=== PATIENT | female | born 1955 | race Caucasian/White ===

== ENCOUNTER → 2018-03-04 | Outpatient (CLI) | payer BC ==
--- NOTE | 2018-03-05 07:56 | MM ---
Reason for exam: screening (asymptomatic). Last mammogram was performed 2 years ago. History: Patient is postmenopausal. Physical Findings: A clinical breast exam by your physician is recommended on an annual basis and results should be correlated with mammographic findings. MG 3D Screening Mammo W/Cad Bilateral CC and MLO view(s) were taken. Prior study comparison: March 17, 2016, bilateral MG screening mammo w CAD. March 16, 2015, bilateral MG screening mammo w CAD. There are scattered fibroglandular densities. There is no discrete abnormality. ASSESSMENT: Negative, BI-RAD 1 RECOMMENDATION: Routine screening mammogram of both breasts in 1 year.
== END | disposition home or self-care (01) ==
LOC: RADMAMWWP 08:57
PROVIDERS: ATTEND Family Medicine
DX: Z12.31 Encounter for screening mammogram for malignant neoplasm of breast (principal)
CPT/HCPCS: 77063; 77067

== ENCOUNTER → 2019-05-26 | Outpatient (CLI) | payer BC ==
--- NOTE | 2019-05-30 09:26 | MM ---
Reason for exam: screening (asymptomatic). Last mammogram was performed 1 year and 3 months ago. History: Patient is postmenopausal and history of other cancer. Physical Findings: A clinical breast exam by your physician is recommended on an annual basis and results should be correlated with mammographic findings. MG Screening Mammo w CAD Bilateral CC and MLO view(s) were taken. Prior study comparison: March 04, 2018, bilateral MG 3d screening mammo w/cad. March 17, 2016, bilateral MG screening mammo w CAD. There are scattered fibroglandular densities. No significant changes when compared with prior studies. ASSESSMENT: Negative, BI-RAD 1 RECOMMENDATION: Routine screening mammogram of both breasts in 1 year.
== END | disposition home or self-care (01) ==
LOC: RADMAMWWP 11:53
PROVIDERS: ATTEND Family Medicine
DX: Z12.31 Encounter for screening mammogram for malignant neoplasm of breast (principal)
CPT/HCPCS: 77067

== ENCOUNTER → 2019-12-05 | Outpatient (CLI) | payer BC ==
--- NOTE | 2019-12-05 11:47 | US ---
EXAMINATION TYPE: US carotid duplex BILAT DATE OF EXAM: 12/05/2019 COMPARISON: NONE CLINICAL HISTORY: H53.31 Sudden vision loss R eye I10 HTN. EXAM MEASUREMENTS: RIGHT: Peak Systolic Velocity (PSV) cm/sec ----- Right CCA: 77.3 ----- Right ICA: 78.0 ----- Right ECA: 89.5 ICA/CCA ratio: 1.0 RIGHT: End Diastole cm/sec ----- Right CCA: 29.2 ----- Right ICA: 23.9 ----- Right ECA: 15.6 LEFT: Peak Systolic Velocity (PSV) cm/sec ----- Left CCA: 70.7 ----- Left ICA: 69.3 ----- Left ECA: 76.2 ICA/CCA ratio: 1.0 LEFT: End Diastole cm/sec ----- Left CCA: 19.3 ----- Left ICA: 16.1 ----- Left ECA: 15.6 VERTEBRALS (direction of flow): Right Vertebral: Antegrade Left Vertebral: Antegrade Rhythm: Normal Minimal atherosclerotic changes with no significant velocity increases seen bilaterally. IMPRESSION: No evidence for hemodynamically significant stenosis. Criteria for Assigning % of Stenosis / Diameter reduction (Estimation based on the indirect measurements of the internal carotid artery velocities (ICA PSV). 1. Normal (no stenosis)=ICA PSV < 125 cm/s: ratio < 2.0: ICA EDV<40 cm/s. 2. Less than 50% stenosis=ICA PSV < 125 cm/s: ratio < 2.0: ICA EDV<40 cm/s. 3. 50 to 69% stenosis=ICA PSV of 125 to 230 cm/s: ration 2.0 ? 4.0: ICA EDV 40-100 cm/s. 4. Greater than 70% stenosis to near occlusion= ICA PSV > 230 cm/s: ratio > 4.0: ICA EDV > 100 cm/s. 5. Near occlusion= ICA PSV velocities may be low or undetectable: variable ratio and ICA EDV. 6. Total occlusion=unable to detect flow.
== END | disposition home or self-care (01) ==
LOC: RADUSWWP 10:59
PROVIDERS: ATTEND Family Medicine
DX: I10 Essential (primary) hypertension (principal); H53.131 Sudden visual loss, right eye; E78.2 Mixed hyperlipidemia
CPT/HCPCS: 93880

== ENCOUNTER → 2020-06-22 | Outpatient (CLI) | payer BC ==
--- NOTE | 2020-06-25 10:08 | MM ---
Reason for exam: screening (asymptomatic). Last mammogram was performed 1 year and 1 month ago. History: Patient is postmenopausal and history of other cancer. Physical Findings: A clinical breast exam by your physician is recommended on an annual basis and results should be correlated with mammographic findings. MG Screening Mammo w CAD Bilateral CC and MLO view(s) were taken. Prior study comparison: May 26, 2019, bilateral MG screening mammo w CAD. March 04, 2018, bilateral MG 3d screening mammo w/cad. The breast tissue is heterogeneously dense. This may lower the sensitivity of mammography. There is no discrete abnormality. No significant changes when compared with prior studies. ASSESSMENT: Negative, BI-RAD 1 RECOMMENDATION: Routine screening mammogram of both breasts in 1 year.
== END | disposition home or self-care (01) ==
LOC: RADMAMWWP 13:18
PROVIDERS: ATTEND Family Medicine
DX: Z12.31 Encounter for screening mammogram for malignant neoplasm of breast (principal)
CPT/HCPCS: 77067

== ENCOUNTER → 2022-05-06 | Outpatient (CLI) | payer MEDICARE ==
--- NOTE | 2022-05-09 12:23 | MM ---
Reason for Exam: Screening (asymptomatic). Last mammogram was performed 1 year(s) and 11 month(s) ago. Patient History: Menarche at age 12. First Full-Term at age 22. Postmenopausal. Patient has history of breast feeding. Patient used Hormonal Contraceptives for 15 years. Risk Values: Cha 5 year model risk: 1.6%. NCI Lifetime model risk: 6.2%. Prior Study Comparison: 03/02/2007 Screening Mammogram, [facility]. 04/01/2008 Screening Mammogram, [facility]. 06/15/2009 Screening Mammogram, [facility]. 03/17/2016 Bilateral Screening Mammogram, [facility]. 03/04/2018 Bilateral Screening Mammogram, [facility] 05/26/2019 Bilateral Screening Mammogram, [facility]. 06/22/2020 Bilateral Screening Mammogram, [facility]. Tissue Density: There are scattered fibroglandular densities. Findings: Analyzed By CAD. There is no suspicious group of microcalcifications or new suspicious mass in either breast. Overall Assessment: Negative, BI-RAD 1 Management: Screening Mammogram of both breasts in 1 year. A clinical breast exam by your physician is recommended on an annual basis and results should be correlated with mammographic findings. Electronically signed and approved by: Marco Antonio Sauer M.D.
== END | disposition home or self-care (01) ==
LOC: RADMAMWWP 13:13
PROVIDERS: ATTEND Family Medicine
DX: Z12.31 Encounter for screening mammogram for malignant neoplasm of breast (principal); Z78.0 Asymptomatic menopausal state
CPT/HCPCS: 77067

== ENCOUNTER → 2023-05-12 | Outpatient (CLI) | payer MEDICARE ==
--- NOTE | 2023-05-12 17:41 | BD ---
EXAMINATION TYPE: Axial Bone Density DATE OF EXAM: 05/12/2023 CLINICAL HISTORY: 67 years old Female. ICD-10 CODE: M85.9 BD DISORDER Height: 62 Weight: 153.4 FRAX RISK QUESTIONS: Alcohol (3 or more units per day): no Family History (Parent hip fracture): no Glucocorticoids (More than 3mos): no (Ex: prednisone, prednisolone, methylprednisolone, dexamethasone, and hydrocortisone). History of Fracture in Adulthood: no Secondary Osteoporosis: 1. Type 1 Diabetes: no 2. Hyperthyroidism: no 3. Menopause before 45: no 4. Malnutrition: no 5. Chronic liver disease: no Rheumatoid Arthritis: no Current Tobacco Use: no RISK FACTORS HISTORY OF: History of Wrist Fracture: left arm When: as a child Surgery to Spine/Hip(right/left)/Wrist (right/left): no MEDICATIONS: Additional History: EXAM MEASUREMENTS: Bone mineral densitometry was performed using the [employer] System. Bone mineral density as measured about the Lumbar spine is: ----- L1-L4(G/cm2): 0.969 T Score Values are as follows: ----- L1: -2.7 ----- L2: -1.6 ----- L3: -2.0 ----- L4: -1.1 ----- L1-L4: -1.8 Z Score Values are as follows: ----- L1: -1.3 ----- L2: -0.1 ----- L3: -0.5 ----- L4: 0.4 ----- L1-L4: -0.3 Bone mineral density has: decreased -8.1 % since study of: 2016 Bone mineral density about the R hip (g/cm2): 0.819 Bone mineral density about the L hip (g/cm2): 0.828 T Score values are as follows: -----R Neck: -1.8 -----L Neck: -1.6 -----R Total: -1.5 -----L Total: -1.4 Z Score values are as follows: -----R Neck: -0.4 -----L Neck: -0.1 -----R Total: -0.3 -----L Total: -0.2 Bone mineral density has: decreased -3.7 % since study of: 2016 FRAX%s: The graph provided illustrates a 10.3% chance for a major osteoporotic fx and a 1.5% chance f or the hips probability for fx in 10 years time. IMPRESSION: Osteopenia (T Score between -2.5 and -1). There is slightly increased risk of fracture and the patient may be considered for treatment. Re-Screen 2-5 years. NOTE: T-SCORE=SD OF THE YOUNG ADULT MEAN.
--- NOTE | 2023-05-13 17:09 | MM ---
Reason for Exam: Screening (asymptomatic). Last screening mammogram was performed 12 month(s) ago. Patient History: Menarche at age 12. First Full-Term at age 22. Postmenopausal. Patient has history of breast feeding. Patient used Hormonal Contraceptives for 15 years. Risk Values: Cha 5 year model risk: 1.6%. NCI Lifetime model risk: 5.9%. Prior Study Comparison: 05/26/2019 Bilateral Screening Mammogram, [facility]. 06/22/2020 Bilateral Screening Mammogram, [facility]. 05/06/2022 Bilateral MG screening mammo w CAD, [facility]. Tissue Density: There are scattered fibroglandular densities. Findings: Analyzed By CAD. There is no suspicious group of microcalcifications or new suspicious mass in either breast. Overall Assessment: Negative, BI-RAD 1 Management: Screening Mammogram of both breasts in 1 year. . Patient should continue monthly self-breast exams. A clinical breast exam by your physician is recommended on an annual basis. This exam should not preclude additional follow-up of suspicious palpable abnormalities. Note on Cha scores and lifetime risk: 1. A Cha score greater than 3% is considered moderate risk. If this is the case, consider specialist referral to assess eligibility for a risk reducing agent. 2. If overall lifetime risk for the development of breast cancer is 20% or higher, the patient may qualify for future screening with alternating mammogram and breast MRI. Electronically signed and approved by: Kendra Garcia M.D. Radiologist
== END | disposition home or self-care (01) ==
LOC: RADBDWWP 10:31
PROVIDERS: ATTEND Family Medicine
DX: Z12.31 Encounter for screening mammogram for malignant neoplasm of breast (principal); M81.0 Age-related osteoporosis without current pathological fracture; M85.89 Other specified disorders of bone density and structure, multiple sites; Z78.0 Asymptomatic menopausal state
CPT/HCPCS: 77067; 77080

== ENCOUNTER → 2024-10-06 | Outpatient (CLI) | payer MEDICARE ==
--- NOTE | 2024-10-06 15:27 | MM ---
Reason for Exam: Screening (asymptomatic). Last mammogram was performed 1 year(s) and 5 month(s) ago. Patient History: Menarche at age 12. First Full-Term at age 22. Postmenopausal. Patient has history of breast feeding. Patient used Hormonal Contraceptives for 15 years. Risk Values: Cha 5 year model risk: 1.7%. NCI Lifetime model risk: 5.5%. Prior Study Comparison: 06/22/2020 Bilateral Screening Mammogram, [facility]. 05/06/2022 Bilateral MG screening mammo w CAD, [facility]. 05/12/2023 Bilateral MG screening mammo w CAD, [facility]. Tissue Density: There are scattered areas of fibroglandular density. Findings: Analyzed By CAD. Prominent bilateral axillary lymph nodes are redemonstrated. There is no suspicious group of microcalcifications or new suspicious mass in either breast. Overall Assessment: Negative, BI-RAD 1 Management: Screening Mammogram of both breasts in 1 year. . Patient should continue monthly self-breast exams. A clinical breast exam by your physician is recommended on an annual basis. This exam should not preclude additional follow-up of suspicious palpable abnormalities. Note on Cha scores and lifetime risk: 1. A Cha score greater than 3% is considered moderate risk. If this is the case, consider specialist referral to assess eligibility for a risk reducing agent. 2. If overall lifetime risk for the development of breast cancer is 20% or higher, the patient may qualify for future screening with alternating mammogram and breast MRI. [facility], , 10/06/2024 3:25 PM. Electronically signed and approved by: Marco Antonio Sauer M.D.
== END | disposition home or self-care (01) ==
LOC: RADMAMWWP 14:30
PROVIDERS: ATTEND Family Medicine
DX: Z12.31 Encounter for screening mammogram for malignant neoplasm of breast (principal); R92.323 Mammographic fibroglandular density, bilateral breasts; Z78.0 Asymptomatic menopausal state; Z92.0 Personal history of contraception
CPT/HCPCS: 77063; 77067